=== PATIENT | female | born 1960 | race Caucasian/White ===

== ENCOUNTER 2017-11-06 10:19 | Emergency (ER) | payer SELFPAY ==
[2017-11-06 10:20] VITALS: BP 185/115; PULSE 118; RESP 15; TEMP 36.8; BMI 30.8
--- NOTE | 2017-11-06 10:37 | CT_ITS ---
STUDY: CT ABDOMEN AND PELVIS WITHOUT CONTRAST REASON FOR EXAM: Female, 57 years old. Right flank pain and bladder spasms. Previous endometriosis and fibroid surgery. RADIATION DOSAGE (If Supplied By Facility): CTDIvol = ( 12.65 ) mGy, DLP = ( 682.84 ) mGycm TECHNIQUE: Transaxial images were obtained from the dome of the diaphragm to the symphysis pubis without oral contrast, and without intravenous contrast. Sagittal and coronal images were reconstructed. Individualized dose optimization techniques were used for this CT. COMPARISON: None. FINDINGS: The visualized lung bases are remarkable only for mild multifocal subsegmental atelectasis. The visualized portions of the heart are within normal limits. Normal liver. Normal gallbladder and extrahepatic biliary system. Normal spleen. Normal pancreas. Normal bilateral adrenal glands. There is minimal right hydronephrosis with a right extrarenal pelvis. Normal left kidney. There is a 4.2 mm x 2.5 mm calculi at the right UVJ seen best on current sequence 2, image 160. There is no significant right hydroureter. Normal visualized stomach. Normal small intestine. Normal colon. There is non-visualization of the appendix. Normal abdominal aorta. Normal inferior vena cava. Normal retroperitoneum. Normal urinary bladder. Normal abdominal wall. There is no acute osseous abnormality. There is no suspicious lytic or blastic osseous finding. CT/Abdomen/Pelvis without Cont IMPRESSION: 4.2 mm x 2.5 mm right UVJ calculi that is partially obstructive. No significant right hydroureter. Mild right hydronephrosis and right perinephric stranding. Electronically Signed: Joni Costa MD at 12:39 EDT , Service support ,
[2017-11-06 11:53] LABS: Bacteria 0 SEEN /hpf (None Seen); Mucous, Urine 0 SEEN /hpf (<or=2+); Red Blood Cells-Urine 0 SEEN /hpf (0-5); Squamous Epithelial Cells - UA 0 SEEN /hpf (5-10)
[2017-11-06] MEDS: 0.9% Normal Saline 1,000 ML 1000 ML IV (11:57)
[2017-11-06] MEDS: Ketorolac 30 MG/ML Syringe IV (11:58)
[2017-11-06] MEDS: Ondansetron 4 MG/2 ML Vial IV (11:58)
[2017-11-06 12:03] LABS: Absolute Lymphocyte Count 0.98 X10^3/ul (0.83-4.51); Basophil# 0.04 X10^3/uL; Basophil% 0.5 % (0-1); Eosinophil# 0.04 X10^3/uL; Eosinophils% 0.5 % (0-5); Hemoglobin 14.8 g/dl (12.0-15.0); Lymphocyte # 0.98 X10^3/ul (4.0); Lymphocyte % 12.9 % (19-41); Mean Corp Hgb Conc 34.4 g/gl (32-36); Mean Corpuscular Hgb 31.4 pg (27.0-32.0); Mean Corpuscular Volume 91.3 fL (81-99); Mean Platelet Vol. 9.8 fl (6.2-12.0); Monocyte% 6.6 % (0-10); Neutrophil # 6.03 X10^3/uL (2.7-7.7); Neutrophil % 79.2 % (47-70); Platelet Count 233 K/mm3 (150-450); RBC Distribution Width CV 12.3 % (11.6-14.6); RBC Distribution Width SD 40.4 fl (35.1-43.9); Red Blood Count 4.71 M/mm3 (4.2-5.4); White Blood Count 7.6 K/mm3 (4.4-11.0)
[2017-11-06 12:05] LABS: POSITIVE COUNT NO; POSITIVE DIFFERENTIAL NO; POSITIVE MORPHOLOGY NO
[2017-11-06 12:05] LABS: Color, Urine Yellow (Yellow); Glucose, Dipstick Normal (Normal); Ketone-Dipstick Negative (Negative); Leukocyte Esterase-Dipstick 100 /ul (Negative); Nitrite-Dipstick Negative (Negative); Occult Blood-Urine 50 /ul (Negative); Protein-Dipstick Negative (Negative); Urine Bilirubin Dipstick Negative (Negative); Urine Clarity Clear (Clear); Urine Urobilinogen Normal (Normal)
[2017-11-06 12:13] LABS: White Blood Cells 0-5 SEEN /hpf (0-5)
[2017-11-06 12:18] LABS: Anion Gap 10 (5-15); BUN 15 mg/dL (7-18); BUN/Creat Ratio 15.3 RATIO (10-20); Calcium,Total 9.2 mg/dL (8.5-10.1); Chloride 107 mmol/L (98-107); Creatinine, Serum 0.98 mg/dL (0.55-1.02); EST Glomerular Filtration Rate 63 mL/min (>60); Est Glom Filt Rate - Afr Amer 76 mL/min (>60); Estimated Creatinine Clearance 55.35 ml/min; Glucose 114 mg/dL (74-106); Sodium Level 141 mmol/L (136-145)
--- NOTE | 2017-11-06 12:59 | ED.DCSUM_ITS ---
- ER Visit Summary Date of Service: 11/06/17 Chief Complaint: Abdominal pain History of Present Illness: The patient is a 57 F who presents with abdominal pain. She reports 3-4 similar prior episodes in the past which she attributed to kidney stones but has never actually sought medical evaluation for this and is managed supportively at home. She states about 2 weeks ago she had right flank and back pain with some radiation to the lower abdomen but this improved. It returned this morning and was more severe than any prior episode. She complains of severe suprapubic pain and spasms as well as some mild to moderate right flank and right back pain. She has had some relief with ibuprofen. She reports nausea without vomiting. She states that she has urinary urgency and feels the need to void but is only having a few drops. No fevers. No vomiting. Physical Examination: Afebrile initial heart rate 118 initial blood pressure 185 /115 Patient appears uncomfortable Moist mucous membranes Heart regular rhythm tachycardia Lungs are clear Abdomen soft and nondistended Patient does have some diffuse lower abdominal tenderness No CVA tenderness Test Results: Bladder scan showed 200 cc. CBC BMP unremarkable. Urinalysis shows 100 leukocyte esterase but no pyuria. CT of the flank does show a 4.2 x 2.5 mm right UVJ calculus with mild right hydronephrosis. Emergency Department Course and Treatment: Bladder scan was performed which showed 200 cc. Afterwards the patient was able to void a large amount. She had significant relief of symptoms. Initially she did not want to proceed with further workup. However after discussion did agree to workup. She does not have signs of infection. She was treated here with Toradol and Zofran. She feels much better on reevaluation. She will be discharged with prescriptions for Percocet and Flomax and referred to urology for outpatient follow-up as needed. She understands to return for new or worsening symptoms was instructed on specific signs and symptoms to monitor for. Treatment Plan: [] Disposition: Discharge Impression: Ureterolithiasis This note was generated with [employer] (Droppy) dictation software. It may contain incorrect words, spelling, and punctuation that were not noted in review of the chart prior to signing ED Disposition - Plan for ED Patient: Chief Complaint: Flank Pain Referrals: Morgan Vargas MD [Primary Care Provider] -
--- NOTE | 2017-11-06 13:01 | ED.DEP ---
ED Disposition - Plan for ED Patient: Chief Complaint: Flank Pain Instructions: ED Stone Renal W Colic Prescriptions: Oxycodone HCl/Acetaminophen [Percocet 5/325] 1 tab PO Q6H PRN PRN 3 Days #12 tab PRN Reason: Pain Tamsulosin HCl [Flomax] 0.4 mg PO DAILY 14 Days #14 cap Referrals: Morgan Vargas MD [Primary Care Provider] - Anish Soares MD [STAFF PHYSICIAN] -
[2017-11-06 13:10] VITALS: BP 171/99; PULSE 87; RESP 18; O2SAT 98
== END 2017-11-06 13:18 | disposition home or self-care (01) ==
PROVIDERS: Emergency Provider Emergency Medicine; Family Provider Family Medicine; PCP Family Medicine
DX: N13.2 Hydronephrosis with renal and ureteral calculous obstruction (principal)
CPT/HCPCS: 74176; 80048; 81001; 85025; 96361; 96374; 96375; 99284; J7030; J2405

== ENCOUNTER 2021-08-01 16:47 | Outpatient (CLI) | payer SELFPAY ==
--- NOTE | 2021-08-01 | IMM_PTH ---
PATIENT: BLUE LARA LOC: [facility] U#:[id number] AGE/SX: 60/F ROOM: RE08/01/[address]: Dr. Laura Fay DO : 1960 BED: DIS: 08/01/2021 SPEC #: [id number] RECD: 08/05/21 12:40 STATUS: BYRON REQ #: [id number] KALLI: 08/01/21 00:[address]: Laura Fay DEPT: IMMUNOHISTOCHEMISTRY RECD BY: Beronica Hartman ENTERED: 08/05/21 12:41 SP TYPE: IMMUNO OTHR DR: Dr. Morgan Vargas MD Tissues: Endometrium, NOS Procedures: CA-125 (add) CEA (add) CK20 (add) CK8 (add) P53 (add) Vimentin (add) CK7 (initial) PHYSICIAN & INSTITUTION [place] [id number] SPECIMEN INFORMATION: Tissue Source: Endometrial biopsy Clinical Info: Abnormal uterine bleeding Specimen Number: [id number] CPT code: 97948, 57247 x6 METHODOLOGY: Deparaffinized sections of prefer/formalin-fixed tissue or PAP/DQ stained slides are incubated with monoclonal/polyclonal antibodies/oligonucleotide probes. Localization is made via biotin free immunoperoxidase method. Appropriate controls are performed and reacted as expected. Results on target cell population are indicated in the following table: RESULTS: ANTIBODY / CLONE RESULT CK7 (OV-TL12/30) negative CK8 (13nfvcX13) positive CK20 (KS20.8) positive Vimentin (V9) negative CEA (11-7/TF-3HB-1) positive CA125 (OC125) negative P53 (DO-7) 2%, rare These tests were developed and their performance characteristics determined by [facility]. They may not have been cleared or approved by the U.S. Food and Drug Administration. The FDA has determined that such clearance or approval is not necessary. The above immunohistochemical/dualISH markers are ordered and reviewed by the Pathologist. INTERPRETATION: Endometrial biopsy: Rare atypical intestinal type glandular epithelium present. AM:juliann 08/12/2021 Case has been reviewed in consultation with Dr. Womack who concurs with the above diagnosis. IDC:[id number]
--- NOTE | 2021-08-01 16:00 | EMB_PTH ---
PATIENT: BLUE LARA LOC: [facility] U#:[id number] AGE/SX: 60/F ROOM: RE08/01/[address]: Dr. Laura Fay DO : 1960 BED: DIS: 08/01/2021 SPEC #: [id number] RECD: 08/01/21 16:47 STATUS: BYRON REEsequiel #: [id number] KALLI: 08/01/21 16:[address]: Laura Fay DEPT: SURGICAL PATHOLOGY RECD BY: Melba Herring ENTERED: 08/02/21 11:18 SP TYPE: ENDOM BX/C JOSH DR: Dr. Morgan Vargas MD Tissues: Endometrium, NOS Procedures: Gen Path Consultation (on slides) Surgery Specimen Level IV HEADER OPERATION: Endometrial biopsy PRE-OP DIAGNOSIS: Abnormal uterine bleeding TISSUE SUBMITTED: Endometrial lining MICROSCOPIC DIAGNOSIS Endometrium, biopsy: Atypical intestinal type glandular epithelium present. See comment. AM:juliann 08/05/2021 COMMENT Immunohistochemistry ([id number]) supports the above diagnosis. The specimen primarily consists of clot and blood and contains rare atypical colonic type epithelium, too few to further characterize. A re-biopsy is recommended if clinically indicated. This case was reviewed in consultation with Dr. Raina Hilario of [facility] who concurs with the diagnosis. The complete consultative report is viewable in EMR. Case has been reviewed in consultation with Dr. Womack who concurs with the above diagnosis. ANDREW:CINDY MICROSCOPIC DESCRIPTION Slides are reviewed. GROSS DESCRIPTION Received is one container labeled with the patient's name and not further designated. The specimen consists of a scant amount of soft tissue. The specimen is totally submitted for cell block preparation. / CINDY:juliann 08/02/2021 TC:? CPT: 14232
== END 2021-08-01 23:59 | disposition short-term general hospital (02) ==
LOC: LABSPEC 08-02 07:46
PROVIDERS: PCP Family Medicine; Referring Provider Obstetrics & Gynecology; Visit Provider Obstetrics & Gynecology
DX: N93.9 Abnormal uterine and vaginal bleeding, unspecified (principal)
CPT/HCPCS: 88305; 88325; 88341; 88342

== ENCOUNTER 2021-08-07 10:19 | Outpatient (CLI) | payer SELFPAY ==
--- NOTE | 2021-08-07 10:23 | US_ITS ---
STUDY: ULTRASOUND OF THE FEMALE PELVIS - COMPLETE REASON FOR EXAM: Female, 61 years old. Abnormal uterine bleeding. LMP: The patient is postmenopausal. TECHNIQUE: Transabdominal and Transvaginal TECHNICAL QUALITY: Adequate. COMPARISON: None. FINDINGS: The uterus is anteverted and is in a midline position. The uterus is enlarged and measures 15.7 cm x 10.9 cm x 10.1 cm. Heterogeneous appearance of the cervix with increased vascularity. The endometrium is thickened and measures 9.6 mm in thickness, and is fluid distended. There is a 2.6 cm x 2.2 cm x 2.2 cm echogenic nodular density in the endometrium. Adjacent to this, a similar-appearing 4.4 cm x 3.7 cm x 3.1 cm echogenic structure. This may represent subendometrial fibroid versus possible endometrial polyps. There is a 2.6 cm x 2.1 cm x 2.1 cm fibroid. There is a lucent appearance of the myometrium. I.U.D. - The patient does not have an I.U.D. The right ovary is visualized. The right ovary measures 3.4 cm x 3.4 cm x 3.6 cm. There is no right ovarian cyst or ovarian mass. There is no visualized right adnexal mass or complex lesion. There is normal arterial and normal venous vascularity. The left ovary is visualized. The left ovary measures 3.4 cm x 2.3 cm x 3.1 cm. There is no left ovarian cyst or ovarian mass. There is no visualized left adnexal mass or complex lesion. There is normal arterial and normal venous vascularity. There is no fluid in the cul-de-sac. The pre void volume of the bladder was 379 ml. US/Pelvic (Non ) IMPRESSION: Enlargement of the uterus. Endometrial thickening with possible subendometrial fibroids versus polyps. Fibroid uterus. Electronically Signed: Robin Warner MD at 13:35 EST ,
--- NOTE | 2021-08-07 10:23 | US_ITS ---
STUDY: ULTRASOUND OF THE FEMALE PELVIS - COMPLETE REASON FOR EXAM: Female, 61 years old. Abnormal uterine bleeding. LMP: The patient is postmenopausal. TECHNIQUE: Transabdominal and Transvaginal TECHNICAL QUALITY: Adequate. COMPARISON: None. FINDINGS: The uterus is anteverted and is in a midline position. The uterus is enlarged and measures 15.7 cm x 10.9 cm x 10.1 cm. Heterogeneous appearance of the cervix with increased vascularity. The endometrium is thickened and measures 9.6 mm in thickness, and is fluid distended. There is a 2.6 cm x 2.2 cm x 2.2 cm echogenic nodular density in the endometrium. Adjacent to this, a similar-appearing 4.4 cm x 3.7 cm x 3.1 cm echogenic structure. This may represent subendometrial fibroid versus possible endometrial polyps. There is a 2.6 cm x 2.1 cm x 2.1 cm fibroid. There is a lucent appearance of the myometrium. I.U.D. - The patient does not have an I.U.D. The right ovary is visualized. The right ovary measures 3.4 cm x 3.4 cm x 3.6 cm. There is no right ovarian cyst or ovarian mass. There is no visualized right adnexal mass or complex lesion. There is normal arterial and normal venous vascularity. The left ovary is visualized. The left ovary measures 3.4 cm x 2.3 cm x 3.1 cm. There is no left ovarian cyst or ovarian mass. There is no visualized left adnexal mass or complex lesion. There is normal arterial and normal venous vascularity. There is no fluid in the cul-de-sac. The pre void volume of the bladder was 379 ml. US/Transvaginal Non- IMPRESSION: Enlargement of the uterus. Endometrial thickening with possible subendometrial fibroids versus polyps. Fibroid uterus. Electronically Signed: Robin Warner MD at 13:35 EST ,
== END 2021-08-07 23:59 | disposition short-term general hospital (02) ==
PROVIDERS: PCP Family Medicine; Referring Provider Obstetrics & Gynecology; Visit Provider Obstetrics & Gynecology
DX: N93.9 Abnormal uterine and vaginal bleeding, unspecified (principal); N85.2 Hypertrophy of uterus; D25.9 Leiomyoma of uterus, unspecified; R93.89 Abnormal findings on diagnostic imaging of other specified body structures
CPT/HCPCS: 76830; 76856

== ENCOUNTER 2021-08-20 07:55 | Day surgery (SDC) | payer SELFPAY ==
[2021-08-19 09:14] LABS: Hematocrit 42.2 % (37-47); Hemoglobin 14.3 g/dL (12.0-15.0); Mean Corp Hgb Conc 33.9 g/dL (32-36); Mean Corpuscular Hgb 31.2 pg (27.0-32.0); Mean Corpuscular Volume 92.1 fL (81-99); Platelet Count 395 K/mm3 (150-450); RBC Distribution Width CV 12.1 % (11.6-14.6); RBC Distribution Width SD 40.7 fl (35.1-43.9); Red Blood Count 4.58 M/mm3 (4.2-5.4); White Blood Count 7.3 K/mm3 (4.4-11.0)
[2021-08-19 09:47] LABS: ALB/GLOB Ratio 0.8 RATIO (0.9-2.4); AST(SGOT) 70 U/L (15-37); Alanine Aminotransfer ALT/SGPT 80 U/L (13-56); Albumin, Serum 3.6 g/dL (3.2-5.0); Alkaline Phosphatase 60 U/L (45-117); Anion Gap 10 (5-15); BUN 10 mg/dL (7-18); BUN/Creat Ratio 11.9 RATIO (10-20); Chloride 103 mmol/L (98-107); Creatinine, Serum 0.84 mg/dL (0.55-1.02); EST Glomerular Filtration Rate 74 mL/min (>60); Est Glom Filt Rate - Afr Amer 89 mL/min (>60); Globulin 4.7 g/dL (2.2-4.2); Glucose 98 mg/dL (74-106); Protein, Total 8.3 g/dL (6.4-8.2); Sodium Level 137 mmol/L (136-145)
[2021-08-20] VITALS (7 sets, daily range): BP systolic 106–162; BP diastolic 77–94; PULSE 113–130; RESP 16; TEMP 37.3–38.1; O2SAT 93–98; BMI 29.8
--- NOTE | 2021-08-20 | IMM_PTH ---
PATIENT: BLUE LARA LOC: [facility] U#:[id number] AGE/SX: 61/F ROOM: RE08/20/[address]: Dr. Laura Fay DO : 1960 BED: DIS: 08/20/2021 SPEC #: [id number] RECD: 08/21/21 13:08 STATUS: BYRON REQ #: [id number] KALLI: 08/20/21 00:[address]: Laura Fay DEPT: IMMUNOHISTOCHEMISTRY RECD BY: Beronica Hartman ENTERED: 08/21/21 13:09 SP TYPE: IMMUNO OTHR DR: Dr. Morgan Vargas MD Tissues: Endometrium, NOS Procedures: SMA (add) MSH2 (add) MLH-1 (add) MSH6 (add) Anti-PMS2 (add) CA-125 (add) CK20 (add) CK5-6 (add) CK7 (add) CK8 (add) DESMIN (add) HER2 HOSSEIN (add) KI-67 (add) P53 (add) MI (add) Vimentin (add) Pankeratin (add) MELAN-A (add) P40 (add) ER (initial) S-100 (add) PHYSICIAN & [place] [id number] SPECIMEN INFORMATION: Tissue Source: Endometrial curettings Clinical Info: Postmenopausal bleeding, enlarged uterus Specimen Number: [id number] #3 CPT code: 65590, 32610 x20 METHODOLOGY: Deparaffinized sections of prefer/formalin-fixed tissue or PAP/DQ stained slides are incubated with monoclonal/polyclonal antibodies/oligonucleotide probes. Localization is made via biotin free immunoperoxidase method. Appropriate controls are performed and reacted as expected. Results on target cell population are indicated in the following table: RESULTS: ANTIBODY / CLONE RESULT Block 3 ER (6F11) positive, focal MI (1E2) positive, focal AE1-3 (AE1/AE3/PCK26) positive, focal CK7 (OV-TL12/30) negative CK8 (91elerY35) positive, rare cells CK20 (KS20.8) negative Vimentin (V9) positive Actin (1A4) positive, spindle cells Desmin (CE-R-11) positive, focal Melan A (A103) negative S-100 (4C4.9) negative CK5-6 (D5 & 1684) negative P40 (BC28) negative P53 (DO-7) negative (wild type) Ki-67 (30-9) positive, ~90% These tests were developed and their performance characteristics determined by [facility]. They may not have been cleared or approved by the U.S. Food and Drug Administration. The FDA has determined that such clearance or approval is not necessary. The above immunohistochemical/dualISH markers are ordered and reviewed by the Pathologist. 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 SJ:rg 08/28/2021 The specimen is sent to [facility] for expert opinion, reviewed by Dr. Clementine Lawrence and the above diagnosis is rendered. Additional immunohistochemical stains performed there and IHC performed here support the above diagnosis. The complete report is viewable in the patient's EMR. ADDENDUM ADDENDUM ADDENDUM ADDENDUM ADDENDUM ADDENDUM ADDENDUM ADDENDUM ADDENDUM ADDENDUM ADDENDUM ADDENDUM ADDENDUM ADDENDUM ADDENDUM ADDENDUM ADDENDUM ADDENDUM ADDENDUM 09/16/2021 09:35 ADDENDUM 09/16/2021 09:35 ADDENDUM 09/16/2021 09:35 ADDENDUM 09/16/2021 09:35 ADDENDUM 09/16/2021 09:35 ANTIBODY / CLONE RESULT Block 3 Ki-67 (30-9) positive, high P53 (DO-7) positive, ~50%, weak MLH-1 (M1) positive MSH2 (25D12) positive MSH6 (44) positive PMS2 (KKD0553) positive Her-2neu (CB11) negative (0) CA125 (OC125) negative The above immunohistochemical/dualISH markers are ordered by Dr. Mindy Cali and reviewed by the pathologist. Result of Microsatellite Instability Study: Negative (no loss of mismatch protein; no microsatellite instability detected). SJ:juliann 09/16/2021
--- NOTE | 2021-08-20 08:08 | PCM.HP.BLA ---
History and Physical Date of Admission: 08/20/21 [facility] [id number] [place] [address] [phone] OFFICE VISITDate of Service: 08/01/21 MR#:[id number]:[id number]: BLUE LARA [facility] #:[id number]:1960 Provider:Dr. 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 Laura Fay DO) Bladder prolapse Endometriosis Uterine fibroid Surgical History (Updated 08/01/21 @ 15:47 by Lea Toth) History of laparoscopy Uterine fibroid Family History (Updated 08/01/21 @ 15:48 by Lea Toth) Father Prostate cancer Diabetes Myocardial infarction Mother Myocardial infarction Social History (Updated 08/01/21 @ 15:49 by Lea Toth) Smoking Status: Never smoker alcohol intake: never substance use type: does not use caffeine: Yes seatbelt use: always do you feel safe at home: Yes additional social history: [facility] Patient does not work HPI Tiffany MARTINO referral Details: BLUE LARA is a 60 year old who presents for consultation per for postmenopausal bleeding and enlarged uterus. She states that her menses stopped in her 40's and the persistent bleeding started when her prolapse started about 5 years ago. She never had childred (2 adopted) due to large fibroid uterus history. She has a h/o 2 laparotomy procedures to remove the fibroids. She denies having other medical problems or family history of female cancers. Female Reproductive History Questions: metorrhagia: No, sexually active: Yes, dyspareunia: No and PCB: No Menopausal Symptoms: No hot flashes, No night sweats, No weight change, No mood changes, No difficulty concentrating, No sleep problems and No change in libido Pregancy History 0 Elective abortions Hx Para Spontaneous abortions Hx # Term Pregnancies Ectopic pregnancies Hx # Pregnancies Multiple births # of living children ROS Const Constitutional: Reports as per HPI; Denies fatigue, increased appetite, poor appetite, night sweats, weight gain or weight loss GI GI: Reports as per HPI; Denies abdominal pain, bloating, constipation, nausea or vomiting : Reports as per HPI and other; Denies difficulty voiding, dysuria, hematuria, hot flashes, nipple discharge, pelvic pain, prolapse symptoms, urinary frequency, urinary incontinence, urinary urgency, vaginal discharge, vaginal dryness, vaginal odor or vaginal pruritus Skin Skin/Breast: Denies nipple discharge Psych Psych: Denies anxiety, change in libido, depression or difficulty concentrating Exam Const General: cooperative, healthy appearing, comfortable, no acute distress, well developed and well groomed Resp Effort & Inspection: normal respiratory effort GI Inspection: normal to inspection and non-distended Palpation: soft, no hepatosplenomegaly and no guarding General: bladder normal to palpation External Female Exam: normal external appearance, normal appearance of the urethra and no lesions Urethra: normal appearance of the urethra and normal palpation Speculum Exam - Vagina: normal appearance of the vagina and normal vaginal discharge Speculum Exam - Cervix: normal appearance of the cervix, no lesions and nontender Bimanual Exam- Vagina & Uterus: abnormal uterine size (uterus is enlarged and firm, possibly consistent with uterine fibroid. ), bladder normal to palpation, uterine shape normal, No tender, No normal palpation (irregularly shaped ), non-tender, no cervical motion tenderness and enlarged Bimanual Exam- Adnexa, other: non-tender Skin General: no rashes or lesions noted Psych Appearance: grossly normal Mental Status: mental status grossly normal Affect: normal affect Speech and Movement: speech and movement normal Attitude: cooperative Office Procedures Endometrial Biopsy Endometrial Biopsy Test: Yes Not Applicable Consent Signed: Yes Time out checklist: patient, procedure, positioning of patient and allergies confirmed tenaculum used: Yes dilator used: No Details: Cervix prepped with betadine and pipelle inserted into uterus without complication. Specimen obtained and sent to lab for analysis. All instruments removed from vagina without complications. Excellent hemostasis noted. Coding Level of Care Code Off vis,new,level 4 Diagnoses Postmenopausal bleeding N95.0 Enlarged uterus N85.2 CPT Codes Endometrial Biopsy (09798) Assessment and Plan Assessment and Plan (1) Postmenopausal bleeding: Status: Acute Plan - Dr. Laura Fay, DO: emb performed today will call with results (2) Enlarged uterus: Status: Acute Plan - Dr. Laura Fay DO: pelvic ultrasound ordered will call with results. Plan Details Other Orders: Orders: Endometrial Biopsy Today N93.9 Pelvic (Non ) Today N93.9 Transvaginal Non- Today N93.9 UPDATE- I have seen the patient and performed any clinically relevant updates to the history and physical exam. Laura Fay DO pathology showed abnormal uterine cells that are intestinal type. After discussing with MEDIA ASSOCIATE oncologist Dr. Kyle in [place], These cells could represent malignancy that is metastatic from another location. The next best plan of action is a full D&C with hysteroscopy to better examine the uterine tissue. When pathology from this procedure is back, she will likely be formally referred to Dr. Little's for further evaluation Plan to day is for Hysteroscopy D&C Plan for DC to home after surgery today.
--- NOTE | 2021-08-20 08:10 | PCM.DC ---
Discharge Instructions Diet Discharge Diet: No restrictions Activity Discharge Activity: Return to Normal Activity, May Shower and May Take a Tub Bath (after 1 week) May resume sexual activity in: 1-2 weeks Weight Bearing Status: Weight bearing as tolerated Lifting Restrictions: none Dressing / Incision Call your doctor if you observe: Fever of 101 or Higher, Using more than 1 pad per hour, Shortness of breath and Uncontrolled pain Follow Up Care Please Follow Up With: Laura Fay DO When: Call [phone] to schedule appointment. Test Results: Test results from this visit will be discussed in further detail at your follow-up appointment, if applicable. Discharge Plan Admission Primary Reason for Your Visit: hysteroscopy Dilation and curettage Attending Provider: Laura Fay Primary Care Provider: Morgan Vargas Discharge Orders/Prescriptions Prescriptions: New ibuprofen 800 mg tablet 800 mg PO Q8H PRN (Reason: pain) 7 Days Qty: 30 RF: 0 Continued vitamin E (dl, acetate) 45 mg (100 unit) capsule 45 mg PO DAILY RF: 0 omega 2-hna-kal-fish oil [Fish Oil] 60-90-500 mg capsule 1 cap PO DAILY RF: 0 multivitamin Tablet 1 tab PO DAILY RF: 0 zinc 50 mg Tablet 50 mg PO DAILY RF: 0 ascorbic acid (vitamin C) 1,000 mg Capsule, Extended Release 2 cap PO DAILY RF: 0 cholecalciferol (vitamin D3) [Vitamin D3] 125 mcg (5,000 unit) Tablet 125 mcg PO DAILY RF: 0 oxycodone-acetaminophen [Percocet] 5-325 mg tablet 1 tab PO Q6H 7 Days Qty: 14 RF: 0 Referrals / Follow Up: Morgan Vargas MD [Primary Care Provider] - Disposition Disposition (needs filled in before D/C Order can be placed): Home, Self Care
[2021-08-20] MEDS: Lactated Ringers 1,000 ML 15 ML IV (08:25)
--- NOTE | 2021-08-20 08:36 | EKG12_ITS ---
Test Reason : TACHY Blood Pressure : / mmHG Vent. Rate : 127 BPM Atrial Rate : 127 BPM P-R Int : 136 ms QRS Dur : 078 ms QT Int : 314 ms P-R-T Axes : 057 037 015 degrees QTc Int : 456 ms Sinus tachycardia Otherwise normal ECG Confirmed by NELY BRO, DORIS ([id number]), editor index JONO HUNTER ([id number]) on 08/26/2021 9:41:16 AM Referred By: Laura Fay Confirmed By:DORIS MCKAY MD
--- NOTE | 2021-08-20 09:30 | EMB_PTH ---
PATIENT: BLUE LARA LOC: [facility] U#:[id number] AGE/SX: 61/F ROOM: RE08/20/[address]: Dr. Laura Fay DO : 1960 BED: DIS: 08/20/2021 SPEC #: [id number] RECD: 08/20/21 11:13 STATUS: BYRON ALY #: [id number] KALLI: 08/20/21 09:[address]: Laura Fay DEPT: SURGICAL PATHOLOGY RECD BY: Melba Herring ENTERED: 08/20/21 12:01 SP TYPE: ENDOM BX/C JOSH DR: Dr. Morgan Vargas MD Tissues: Endometrium, NOS Procedures: Gen Path Consultation (on slides) Surgery Specimen Level IV HEADER OPERATION: Hysteroscopy, dilation and curettage PRE-OP DIAGNOSIS: Postmenopausal bleeding, enlarged uterus TISSUE SUBMITTED: Endometrial curettings MICROSCOPIC DIAGNOSIS Endometrial curettings: Preliminary diagnosis (pending [facility] consult) Poorly differentiated malignancy. CINDY:juliann 08/22/2021 COMMENT This case was discussed with Dr. Fay on 08/22/2021. MICROSCOPIC DESCRIPTION Slides are reviewed. GROSS DESCRIPTION Received in fixative is one container labeled with the patient's name and designated endometrial curettings. The specimen consists of three variable sized polypoid fragments of adamson-pink soft tissue measuring in aggregate 5.5 x 3 x 0.5 cm. The larger pieces are serially sectioned. The entire specimen is submitted in four cassettes. 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 SJ:juliann 08/28/2021 The specimen is sent to [facility] for expert opinion, reviewed by Dr. Clementine Lawrence and the above diagnosis is rendered. The complete report is viewable in the patient's EMR. Immunohistochemistry ([id number]) supports the above diagnosis. Case has been reviewed in consultation with Dr. Kern who concurs with the above diagnosis. IDC:[email or web address]
--- NOTE | 2021-08-20 10:08 | PCM.OP.BLANK ---
Operative Report Date of Procedure: 08/20/21 Pre-operative diagnosis: abnormal endometrial biopsy and enlarged uterus, postmenopausal bleeding, pelvic pain Post-operative diagnosis: abnormal endometrial biopsy and enlarged uterus, postmenopausal bleeding, pelvic pain Surgeon: Dr. Laura Fay, DO Urine output:0 Estimated blood loss: 200cc Procedure: Hysteroscopy Dilation and curettage complications: none Patient was prepped and draped in a normal sterile fashion under MAC anesthesia. A weighted speculum was placed in the vagina and the anterior lip of the cervix was grasped with a single-tooth tenaculum. A paracervical block was placed with 1% lidocaine. Cervix was progressively dilated to allow passage of a 5 mm hysteroscope. The lining was fully visualized and noted to have an irregular appearance with blood and tissue. The uterus initially sounded to 12 cm. Curettage was performed and a moderate amount of firm tissue was removed in strips and sent to pathology. There was a moment of heavy flowing bleeding in the amount of 200 cc. Further curettage was performed until the bleeding stopped. The patient is being administered TXA to prevent further bleeding. All instruments were removed from the vagina and excellent hemostasis was noted. Patient was awoken and taken to recovery in stable condition. Multi Select Codes Urinary/Genital Urinary/Genital CPT Codes: 16387 Hysteroscopy,EMC, Polypectomy
[2021-08-20 10:12] LABS: Bacteria 0 SEEN /hpf (None Seen); Mucous, Urine 0 SEEN /hpf (<or=2+); Squamous Epithelial Cells - UA 0 SEEN /hpf (5-10); White Blood Cells 0 SEEN /hpf (0-5)
[2021-08-20] MEDS: Lubricating Jelly 60 GM Tube 30 GM (10:20)
[2021-08-20] MEDS: Lidocaine 1% (20 ml mdv) 20 ML Vial (10:20)
[2021-08-20 10:59] LABS: Color, Urine Yellow (Yellow); Glucose, Dipstick Normal (Normal); Ketone-Dipstick 50 mg/dl (Negative); Leukocyte Esterase-Dipstick Negative /ul (Negative); Nitrite-Dipstick Negative (Negative); Occult Blood-Urine 150 /ul (Negative); Protein-Dipstick 15 mg/dl (Negative); Specific Gravity, Urine 1.015 (1.002-1.030); Urine Bilirubin Dipstick Negative (Negative); Urine Clarity Clear (Clear); Urine Urobilinogen Normal (Normal)
[2021-08-20 11:20] LABS: Amorphous Sediment 3+; Red Blood Cells-Urine 5-10 SEEN /hpf (0-5)
== END 2021-08-20 23:59 | disposition home or self-care (01) ==
LOC: SDC 07:56 → AC 07:56
PROVIDERS: PCP Family Medicine; Referring Provider Obstetrics & Gynecology; Visit Provider Obstetrics & Gynecology
PROC: 0UDB8ZZ Extraction of Endometrium, Via Natural or Artificial Opening Endoscopic (ICD-10-PCS; CPT 58558; principal; 2021-08-20 09:20)
DX: C54.1 Malignant neoplasm of endometrium (principal); N95.0 Postmenopausal bleeding; N85.2 Hypertrophy of uterus
CPT/HCPCS: 58558; 00952; 36415; 80053; 81001; 85027; 86850; 86900; 86901; 87086; 87088; 87426; 88305; 88325; 88341; 88342; 93005; C9803; J7120; J2405

== ENCOUNTER 2022-01-14 20:57 | Inpatient (IN) | payer SELFPAY ==
[2022-01-14 21:01] VITALS: BP 132/88; PULSE 125; RESP 18; TEMP 36.8; O2SAT 95; BMI 20.9
--- NOTE | 2022-01-14 21:05 | EKG12_ITS ---
Test Reason : CP ADMIT Blood Pressure : / mmHG Vent. Rate : 104 BPM Atrial Rate : 104 BPM P-R Int : 148 ms QRS Dur : 092 ms QT Int : 314 ms P-R-T Axes : 058 045 026 degrees QTc Int : 412 ms Sinus tachycardia with Premature atrial complexes Otherwise normal ECG Confirmed by NELY BRO, DORIS ([id number]), order editor JONO HUNTER ([id number]) on 01/16/2022 9:14:21 AM Referred By: Confirmed By:DORIS MCKAY MD
--- NOTE | 2022-01-14 21:16 | EKG12_ITS ---
Test Reason : CP Blood Pressure : / mmHG Vent. Rate : 120 BPM Atrial Rate : 120 BPM P-R Int : 144 ms QRS Dur : 090 ms QT Int : 298 ms P-R-T Axes : 046 016 031 degrees QTc Int : 421 ms Sinus tachycardia Otherwise normal ECG Confirmed by NELY BRO, DORIS ([id number]), fan mail editor JONO HUNTER ([id number]) on 01/18/2022 9:46:49 AM Referred By: DELANO Confirmed By:DORIS MCKAY MD
[2022-01-14 21:41] LABS: Absolute Lymphocyte Count 0.64 X10^3/uL (0.83-4.51); Absolute Neutrophil Count 8.8 X10^3/uL (2.0-7.7); Basophil# 0.04 X10^3/uL; Basophil% 0.4 % (0-1); Eosinophil# 0.03 X10^3/uL; Eosinophils% 0.3 % (0-5); Hematocrit 30.1 % (37-47); Hemoglobin 9.9 g/dL (12.0-15.0); Lymphocyte # 0.64 X10^3/ul (0.83-4.51); Lymphocyte % 5.9 % (19-41); Mean Corp Hgb Conc 32.9 g/dL (32-36); Mean Corpuscular Hgb 34.3 pg (27.0-32.0); Mean Corpuscular Volume 104.2 fL (81-99); Mean Platelet Vol. 8.6 fl (6.2-12.0); Monocyte% 11.2 % (0-10); NRBC Flagged by Analyzer 0 % (0-5); Neutrophil % 81.7 % (47-70); Platelet Count 281 K/mm3 (150-450); RBC Distribution Width CV 13.3 % (11.6-14.6); RBC Distribution Width SD 51.5 fl (35.1-43.9); Red Blood Count 2.89 M/mm3 (4.2-5.4); White Blood Count 10.8 K/mm3 (4.4-11.0)
[2022-01-14 22:09] LABS: Anion Gap 12 (5-15); BUN 17 mg/dL (7-18); BUN/Creat Ratio 27.6 RATIO (10-20); Chloride 94 mmol/L (98-107); Creatinine, Serum 0.62 mg/dL (0.55-1.02); EST Glomerular Filtration Rate 105 mL/min (>60); Est Glom Filt Rate - Afr Amer 127 mL/min (>60); Estimated Creatinine Clearance 83.32 ml/min; Glucose 103 mg/dL (74-106); Potassium 4.3 mmol/L (3.5-5.1); Sodium Level 132 mmol/L (136-145); Troponin-I HS < 3 pg/mL (3.0-54.0)
[2022-01-14 22:38] VITALS: BP 136/83; PULSE 106; RESP 22; O2SAT 98
--- NOTE | 2022-01-14 22:43 | CT_ITS ---
We are attempting to reach an attending provider to discuss findings. An addendum with communication details will be sent when the communication is complete. EXAM: CT ANGIOGRAPHY CHEST WITHOUT AND WITH INTRAVENOUS CONTRAST CLINICAL INDICATION: High pretest probability pulmonary embolus TECHNIQUE: Helically acquired angiography images were obtained of the chest without and with intravenous contrast. This CT exam was performed using one or more of the following dose reduction techniques: automated exposure control, adjustment of the mA and/or kV according to patient size, and/or use of iterative reconstruction technique. This report was created using [employer] report generation technology. MIP reconstructed images were created and reviewed. CONTRAST: 75 cc of Isovue-370 IV. RADIATION DOSE: CTDIvol = 7.64 mGy, DLP = 140.77 mGy-cm. COMPARISON: None. FINDINGS: PULMONARY ARTERIES: Pulmonary emboli involving proximal right middle and lower lobe pulmonary arteries. Normal in caliber. AORTA: Unremarkable. Normal in caliber. No evidence of dissection. GREAT VESSELS OF AORTIC ARCH: Unremarkable. Normal in caliber. No evidence of dissection. LUNGS AND PLEURAL SPACES: Subsegmental atelectasis in the lung bases left greater than right. No mass. No pleural effusion or thickening. No pneumothorax. HEART: Unremarkable. Heart size is normal. No pericardial effusion. No signs of right heart strain, ratio of right ventricle to left ventricle measures less than 1. MEDIASTINUM: Borderline size mediastinal lymph nodes. Esophagus is unremarkable. No hiatal hernia. THYROID: Unremarkable. No thyroid lesions. BONES/JOINTS: Unremarkable. No suspicious lytic or blastic abnormality. CT/CTA Chest W/WO Contrast IMPRESSION: 1. Pulmonary emboli involving proximal right middle and lower lobe pulmonary arteries. No signs of right ventricular strain. 2. Subsegmental atelectasis in the lung bases left greater than right. 3. Borderline size mediastinal lymph nodes. Electronically Signed: Maninder Pardo MD at 23:41 EDT ,
--- NOTE | 2022-01-14 22:48 | US_ITS ---
ACR Level 3 findings have been noted. An addendum which confirms receipt of the report will follow. EXAM: US DUPLEX LEFT LOWER EXTREMITY VEINS CLINICAL INDICATION: LT LEG SWELLING/ PAIN TECHNIQUE: Real-time duplex ultrasound scan of the left lower extremity veins integrating B-mode two-dimensional vascular structure, Doppler spectral analysis, color flow Doppler imaging and compression. This report was created using [employer] report generation technology. COMPARISON: None. FINDINGS: DEEP VEINS: Positive for DVT from the common femoral vein to the peroneal vein/posterior tibial vein at the level of the calf. SUPERFICIAL VEINS: Unremarkable. No thrombus in the visualized great saphenous vein. SOFT TISSUES: No acute findings. No popliteal cyst. US/Venous Duplex Imag/Limited/Uni IMPRESSION: Extensive DVT. Electronically Signed: Miguel Del Toro MD at 23:28 EDT ,
--- NOTE | 2022-01-14 22:59 | EX.ED.DYSGE1 ---
HPI History of Present Illness Chief Complaint: Chest Pain Detail of Chief Complaint: Pleuritic left-sided chest pain, left lower extremity pain and swelling Informant: patient and spouse/S.O. Onset/Context/Timing Onset: Days Context: Sudden Onset Timing: Continuous Quality: Pleuritic chest pain and left lower extremity pain Location: Left side Current Severity: Mild Maximum Severity: Moderate Worsened by: Chest pain is worse with breathing Relieved by: Nothing Associated Symptoms Associated Symptoms: Dyspnea on exertion Narrative Narrative: Patient is a 61-year-old woman with stage IV uterine cancer who presents with left-sided pleuritic chest pain with shortness of breath dyspnea on exertion. She also has a swollen left lower extremity that is painful. She denies fever, chills night sweats. She denies headache, visual, ocular auditory symptoms. She denies history of cardiac disease. She denies epistaxis, bleeding of her gums, hemoptysis. She denies hematuria. She denies black or maroon-colored stool. She has no contraindication to anticoagulation. Prior similar symptoms: No Recent Illness/Hospitalization: Yes [facility] Medical History Anxiety Back pain Bladder prolapse Endometriosis History of echocardiogram History of irregular heartbeat History of ulceration Migraine headache Non-smoker Uterine cancer Uterine fibroid Wears glasses White coat syndrome with high blood pressure but without hypertension Home Medications multivitamin 1 tab PO DAILY 08/01/21 [History Last Taken Unknown] omega 8-iyn-kze-fish oil 60 mg-90 mg-500 mg capsule (Fish Oil) 1 cap PO DAILY 08/01/21 [History Last Taken Unknown] vitamin E (dl, acetate) 45 mg (100 unit) capsule 45 mg PO DAILY 08/01/21 [History Last Taken Unknown] ascorbic acid (vitamin C) 1,000 mg capsule,extended release 2 cap PO DAILY 08/16/21 [History Last Taken Unknown] cholecalciferol (vitamin D3) 125 mcg (5,000 unit) tablet (Vitamin D3) 250 mcg PO DAILY 08/16/21 [History Last Taken Unknown] zinc 50 mg tablet 100 mg PO DAILY 08/16/21 [History Last Taken Unknown] diltiazem HCl 180 mg capsule,extended release 24 hr 180 cap PO BID 01/14/22 [History Last Taken Unknown] melatonin 3 mg tablet 3 mg PO DAILY 01/14/22 [History Last Taken Unknown] morphine 10 mg/5 mL oral solution 7.5 ml PO Q4H PRN PRN Pain 01/14/22 [History Last Taken Unknown] Allergy/AdvReac Type Severity Reaction Status Date / Time aspirin Allergy Other Verified 01/14/22 20:59 Family History Father Prostate cancer Diabetes Myocardial infarction Mother Myocardial infarction Surgical History History of laparoscopy Hx of laparoscopy Uterine fibroid Social History Smoking Status: Never smoker alcohol intake: never substance use type: does not use caffeine: Yes seatbelt use: always do you feel safe at home: Yes additional social history: [employer] Patient does not work ROS ROS ED Constitutional Constitutional ED: Reports sweats and weight loss; Denies chills, fever(s) or subjective Eyes Eyes: Denies blurry vision, change in vision or diplopia ENT ENT ED: Denies ear pain, rhinorrhea or sore throat Cardiovascular Cardiovascular: Reports palpitations; Denies chest pain, orthopnea or paroxysmal nocturnal dyspnea Respiratory/Chest Respiratory/Chest: Reports dyspnea and dyspnea on exertion; Denies cough, orthopnea or paroxysmal nocturnal dyspnea Gastrointestinal Gastrointestinal: Denies abdominal pain, constipation, diarrhea, melena, nausea or vomiting Genitourinary Genitourinary ED: Denies dysuria, hematuria or other Musculoskeletal Musculoskeletal: Denies arthralgias, back pain, myalgias or neck pain Integumentary Denies abscess, Abrasions or rash Neurologic Neurologic: Denies headache(s), paresthesias or weakness Psychiatric Psychiatric: Reports anxiety; Denies depression Endocrine Endocrinology: Denies cold intolerance or heat intolerance Hematologic/Lymphatic Hematologic/Lymphatic: Reports anemia; Denies easy bleeding or easy bruising EXAM Physical Exam Const Vital Signs: 01/14/22 21:01 01/14/22 22:30 01/14/22 22:30 Temperature 98.2 F Temperature Source Temporal Pulse Rate 125 H Respiratory Rate 18 Respiratory Effort Normal Non-Labored Respiratory Pattern Normal Blood Pressure 132/88 H Blood Pressure Mean 102 Pulse Ox 95 Oxygen Delivery Method Room Air Room Air 01/14/22 22:38 01/14/22 23:00 01/14/22 23:46 Temperature Temperature Source Pulse Rate 106 H 113 H Respiratory Rate 22 H 15 18 Respiratory Effort Respiratory Pattern Blood Pressure 136/83 H 128/83 H Blood Pressure Mean 100 98 Pulse Ox 98 95 Oxygen Delivery Method Room Air Room Air Room Air 01/14/22 23:48 Temperature Temperature Source Pulse Rate Respiratory Rate 17 Respiratory Effort Respiratory Pattern Blood Pressure Blood Pressure Mean Pulse Ox Oxygen Delivery Method Room Air Positive well nourished and well developed General Appearance ED: well developed; Negative for cyanotic, diaphoretic, NAD or pallor HEENT Reports dry mucous membranes HEENT Narrative: Uvula midline. There is no erythema or exudate of the posterior pharynx. Head is normocephalic atraumatic. She does have alopecia. Mouth ED: Yes dry mucous membranes Mouth: dry mucous membranes Eyes PERRL and EOMs intact bilaterally General Eye ED: Yes pale conjunctiva; Negative for scleral icterus Neck no lymphadenopathy, supple and no JVD Chest Wall inspection of chest normal and palpation of chest normal Resp normal respiratory effort and clear to auscultation bilaterally Cardio regular rhythm, S1 normal heart sound, S2 normal heart sound and no murmurs Rate: tachycardic GI normal to inspection, nondistended, normoactive bowel sounds, non-tender and non-distended; Negative for hepatosplenomegaly Back/Spine no CVA tenderness Cervical Spine: Negative for cervical spine tenderness Thoracic Spine / Upper Back: Negative for thoracic spinal tenderness Lumbar Spine / Lower Back: Negative for lumbar spinal tenderness Extremity Negative for normal to inspection Extremity Narrative: The left lower extremity is swollen, discolored, there is leg vein distention and tenderness on the distribution deep venous system. There is no palpable cords. Neuro oriented x3, CN's II-XII intact bilaterally and no sensory deficits noted Sensorium / Orientation: alert Motor Exam: strength 5/5 throughout Psych mental status grossly normal Skin no rashes or lesions noted, no wounds and skin turgor normal General Skin Exam: Negative for jaundice or pallor MDM MDM MDM Narrative Medical decision making narrative: Concern patient has DVT and PE. Nurses entered protocol orders. Patient is anemic with a hemoglobin 9.9 and hematocrit of 30.1. Platelet count is normal. White count differential normal. Liver functions normal. Troponin is less than 3. Calcium is elevated and may represent bone metastasis. Did discuss CODE STATUS. Patient is full code. She has an appointment to be seen by specialist who have managed stage IV cancer in [place]. She does not have an appointment to the end of the month. Therefore, will contact hospitalist for admission Lab Data Attestation: I reviewed the patient's lab results. Lab results narrative: Coags were ordered. Patient was started on heparin with bolus. I was informed by the information technology security manager that the venous duplex study of the left leg reveals clot the entire left lower extremity involving the common femoral vein to the ankle. Labs: Laboratory Results - last 24 hr 01/14/22 01/14/22 21:30 21:30 WBC 10.8 RBC 2.89 L Hgb 9.9 L Hct 30.1 L MCV 104.2 H MCH 34.3 H MCHC 32.9 RDW Std Deviation 51.5 H RDW Coeff of Subha 13.3 Plt Count 281 MPV 8.6 Immature Gran % (Auto) 0.500 Neut % (Auto) 81.7 H Lymph % (Auto) 5.9 L [place] % (Auto) 11.2 H Eos % (Auto) 0.3 Baso % (Auto) 0.4 Absolute Neuts (auto) 8.8 H Absolute Lymphs (auto) 0.64 L Nucleated RBC % 0 Sodium 132 L Potassium 4.3 Chloride 94 L Carbon Dioxide 26.0 Anion Gap 12 BUN 17 Creatinine 0.62 Estim Creat Clear Calc 83.32 Est GFR (MDRD) Af Amer 127 Est GFR (MDRD) Non-Af 105 BUN/Creatinine Ratio 27.6 H Glucose 103 Calcium 13.0 H* Troponin I High Sens < 3 L Radiography Diagnostic Testing: Clinical Impression(s) from Imaging Studies Chest CTA 01/14/22 22:43 IMPRESSION: 1. Pulmonary emboli involving proximal right middle and lower lobe pulmonary arteries. No signs of right ventricular strain. 2. Subsegmental atelectasis in the lung bases left greater than right. 3. Borderline size mediastinal lymph nodes. Electronically Signed: Maninder Pardo MD at 23:41 EDT , Venous Duplex 01/14/22 22:48 IMPRESSION: Extensive DVT. Electronically Signed: Miguel Del Toro MD at 23:28 EDT , ADDENDUM: 01/14/22 [id number] IMPRESSION: Extensive DVT. N.B. : Louise Yin/RONY murray OT, confirmed on 01/14/2022 23:30:02 (ET) that the healthcare facility has received the radiology report. Electronically Signed: Miguel Del Toro MD at 23:28 EDT , EKG Initial EKG: Interpretation: Sinus Tachycardia (Ventricular rate is 119. There is no acute ischemic changes. [place] interval is normal. Cures duration is normal.) Treatment and Re-Evaluation Narrative: With positive DVT the entire left lower extremity concern that patient's pleuritic pain is a PE. We will need to discuss CODE STATUS. Discharge Plan Dx/Rx/DC Orders Clinical Impression: Pulmonary embolus, Uterine cancer, Deep vein thrombosis (DVT) of femoral vein of left lower extremity, Acute deep vein thrombosis (DVT) of popliteal vein of lower extremity, Hypercalcemia Disposition Disposition: Acute Care [facility]
[2022-01-14 23:00] VITALS: RESP 15
--- NOTE | 2022-01-14 23:37 | HP.PCM.HOS_ITS ---
HPI - General General Date of Admission: 01/14/22 Date of Service: 01/14/22 Chief Complaint: Chest pain HPI Narrative BLUE LARA, is a 61 F with a history of stage IV uterine cancer who is planning on going for 'integrated medicine' in [place] presents to the emergency department with chest pain. Her symptoms began a day before prese ntation. Initially the chest pain was located under her left breast. This chest pain went away but later on it appeared at her substernal chest area. The chest pain worsens with movement and taking a deep breath. She described her chest pain as sharp. Associated with symptoms is pain and swelling of her left calf and her left thigh. Also her left lower extremity is tender to touch. Associated with symptom is shortness of breath. Reportedly her father had a clotting disorder. [facility] Medical History Anxiety Back pain Bladder prolapse Endometriosis History of echocardiogram History of irregular heartbeat History of ulceration Migraine headache Non-smoker Uterine cancer Uterine fibroid Wears glasses White coat syndrome with high blood pressure but without hypertension Home Medications multivitamin 1 tab PO DAILY 08/01/21 [History Last Taken Unknown] omega 1-rvn-hfw-fish oil 60 mg-90 mg-500 mg capsule (Fish Oil) 1 cap PO DAILY 08/01/21 [History Last Taken Unknown] vitamin E (dl, acetate) 45 mg (100 unit) capsule 45 mg PO DAILY 08/01/21 [History Last Taken Unknown] ascorbic acid (vitamin C) 1,000 mg capsule,extended release 2 cap PO DAILY 08/16/21 [History Last Taken Unknown] cholecalciferol (vitamin D3) 125 mcg (5,000 unit) tablet (Vitamin D3) 250 mcg PO DAILY 08/16/21 [History Last Taken Unknown] zinc 50 mg tablet 100 mg PO DAILY 08/16/21 [History Last Taken Unknown] diltiazem HCl 180 mg capsule,extended release 24 hr 180 cap PO BID 01/14/22 [History Last Taken Unknown] melatonin 3 mg tablet 3 mg PO DAILY 01/14/22 [History Last Taken Unknown] morphine 10 mg/5 mL oral solution 7.5 ml PO Q4H PRN PRN Pain 01/14/22 [History Last Taken Unknown] Allergy/AdvReac Type Severity Reaction Status Date / Time aspirin Allergy Other Verified 01/14/22 20:59 Family History Father Prostate cancer Diabetes Myocardial infarction Mother Myocardial infarction Surgical History History of laparoscopy Hx of laparoscopy Uterine fibroid Social History Smoking Status: Never smoker alcohol intake: never substance use type: does not use caffeine: Yes seatbelt use: always do you feel safe at home: Yes additional social history: [employer] Patient does not work ROS ROS Narrative Pertinent positives and pertinent negatives as noted in HPI. All other systems were reviewed and are negative. Vital Signs Vital Signs Vital Signs: 01/14/22 21:01 01/14/22 22:30 01/14/22 22:30 Temperature 98.2 F Temperature Source Temporal Pulse Rate 125 H Respiratory Rate 18 Respiratory Effort Normal Non-Labored Respiratory Pattern Normal Blood Pressure 132/88 H Blood Pressure Mean 102 Pulse Ox 95 Oxygen Delivery Method Room Air Room Air 01/14/22 22:38 01/14/22 23:00 Temperature Temperature Source Pulse Rate 106 H Respiratory Rate 22 H 15 Respiratory Effort Respiratory Pattern Blood Pressure 136/83 H Blood Pressure Mean 100 Pulse Ox 98 Oxygen Delivery Method Room Air Room Air Weight Weight: 55.338 kg Body Mass Index (BMI) 20.9 Physical Exam Narrative Physical exam: General: Well-nourished, well-developed. Head: Normocephalic, atraumatic, no tenderness Eyes: Vision is grossly intact. EOMI ENT, no trauma, moist mucous membranes, no rhinorrhea Neck: Nontender, full range of motion CVS: Regular rate and rhythm. S1-S2 present. No murmur, gallop or rub. Respiratory : clear to auscultation bilaterally, chest wall nontender, no wheezing Abdomen: Soft, nontender, nondistended, normal bowel sounds, no masses : Deferred Back: Nontender, no CVA tenderness Extremities: Swelling and tightness of left calf. Right calf is not swollen. Skin: Normal color, no trauma, abrasions Neuro: Alert, oriented, cranial nerves II through XII grossly intact. Psychiatry: Normal mood. Normal affect. Not depressed. Not anxious. Results Lab / Micro Data Result Diagrams: 01/14/22 21:30 01/14/22 21:30 Labs: Laboratory Results - last 24 hr 01/14/22 21:30: WBC 10.8, RBC 2.89 L, Hgb 9.9 L, Hct 30.1 L, MCV 104.2 H, MCH 34.3 H, MCHC 32.9, RDW Std Deviation 51.5 H, RDW Coeff of Subha 13.3, Plt Count 281, MPV 8.6, Immature Gran % (Auto) 0.500, Neut % (Auto) 81.7 H, Lymph % (Auto) 5.9 L, [place] % (Auto) 11.2 H, Eos % (Auto) 0.3, Baso % (Auto) 0.4, Absolute Neuts (auto) 8.8 H, Absolute Lymphs (auto) 0.64 L, Nucleated RBC % 0 01/14/22 21:30: Sodium 132 L, Potassium 4.3, Chloride 94 L, Carbon Dioxide 26.0, Anion Gap 12, BUN 17, Creatinine 0.62, Estim Creat Clear Calc 83.32, Est GFR (MDRD) Af Amer 127, Est GFR (MDRD) Non-Af 105, BUN/Creatinine Ratio 27.6 H, Glucose 103, Calcium 13.0 H*, Troponin I High Sens < 3 L Radiology Impression Venous Duplex 01/14/22 22:48 IMPRESSION: Extensive DVT. Electronically Signed: Miguel Del Toro MD at 23:28 EDT Reading Location ID and State: [employer] / [place] Tel , Service support , ADDENDUM: 01/14/22 [id number] IMPRESSION: Extensive DVT. N.B. : Louise Yin/ED nursing unit clerk, OT, confirmed on 01/14/2022 23:30:02 (ET) that the healthcare facility has received the radiology report. Electronically Signed: Miguel Del Toro MD at 23:28 EDT , Assessment & Plan Assessment/Plan (1) Pulmonary embolus: PLAN: CTA chest PE protocol was visualized and independently interpreted and I agree with Interpretation of pulmonary emboli involving proximal right middle and lower lobe pulmonary arteries. Started on heparin drip at emergency department and continued. Will check echocardiogram. (2) DVT, femoral, acute: PLAN: Venous duplex of left lower extremity positive for DVT from common femoral vein to the peroneal vein/posterior tibial vein at the level of the calf. Heparin drip as above. (3) Hypercalcemia: PLAN: BMP showed calcium of 13. Likely from malignancy. IV fluids ordered. Vitamin D level and intact parathyroid hormone ordered. Trend BMP. (4) Lactic acidosis: PLAN: Likely from tissue hypoxia secondary to PE/DVT. Trend lactic acid. (5) Uterine cancer: PLAN: Home morphine continued. Monitor. Charges/Coding Visit Charges Inpatient E&M: 79984 Init Hosp L3
[2022-01-14] MEDS: HYDROmorphone 0.5 MG/0.5 ML SYRINGE IV (23:40)
[2022-01-14 23:46] VITALS: BP 128/83; PULSE 113; RESP 18; O2SAT 95
[2022-01-14 23:48] VITALS: RESP 17
[2022-01-15] VITALS (12 sets, daily range): BP systolic 103–129; BP diastolic 69–81; PULSE 99–112; RESP 15–20; TEMP 36.3–37.7; O2SAT 93–98; BMI 22.4
[2022-01-15 00:20] LABS: Lactic Acid 2.5 mmol/L (0.4-1.9)
[2022-01-15] MEDS: HYDROmorphone 0.5 MG/0.5 ML SYRINGE IV (00:20)
[2022-01-15] MEDS: HEPARIN/D5w 25,000 UNITS 25,000 UNITS/250 ML IV.SOLN. 8 UNITS CONT INF (00:48)
[2022-01-15] MEDS: Heparin Injection (Vial) 5,000 UNIT/ML VIAL 4000 UNIT IV (00:48)
--- NOTE | 2022-01-15 00:50 | NURSING ---
dr martins does not want me to wait for pt and ptt results to come back. He wants the heparin drip started now.
[2022-01-15 01:09] LABS: International Normalized Ratio 1.3; Prothrombin Time (Protime)PT. 15.8 SECONDS (11.7-14.9)
[2022-01-15 01:11] LABS: Partial Thromboplast Time 32.8 Seconds (24.1-36.2)
[2022-01-15] MEDS: 0.9% Normal Saline 1,000 ML 100 ML IV ×3 (03:43→21:11)
[2022-01-15 03:49] LABS: Reflex Lactate? Y
[2022-01-15] MEDS: morphine (oral solution) 10MG/0.5ML Syringe 15 MG PO ×4 (03:50→21:07)
[2022-01-15 04:28] LABS: Absolute Lymphocyte Count 0.71 X10^3/uL (0.83-4.51); Basophil# 0.03 X10^3/uL; Basophil% 0.3 % (0-1); Eosinophil# 0.01 X10^3/uL; Eosinophils% 0.1 % (0-5); Hematocrit 27.1 % (37-47); Lymphocyte # 0.71 X10^3/ul (0.83-4.51); Lymphocyte % 7.3 % (19-41); Mean Corp Hgb Conc 33.2 g/dL (32-36); Mean Corpuscular Hgb 34.1 pg (27.0-32.0); Mean Corpuscular Volume 102.7 fL (81-99); Mean Platelet Vol. 8.6 fl (6.2-12.0); Monocyte# 1.02 X10^3/uL; Monocyte% 10.5 % (0-10); NRBC Flagged by Analyzer 0 % (0-5); Neutrophil # 7.95 X10^3/uL (2.7-7.7); Neutrophil % 81.4 % (47-70); Platelet Count 253 K/mm3 (150-450); RBC Distribution Width CV 13.3 % (11.6-14.6); RBC Distribution Width SD 49.8 fl (35.1-43.9); Red Blood Count 2.64 M/mm3 (4.2-5.4); White Blood Count 9.8 K/mm3 (4.4-11.0)
[2022-01-15 04:48] LABS: Anion Gap 11 (5-15); BUN 16 mg/dL (7-18); BUN/Creat Ratio 32.8 RATIO (10-20); Calcium,Total 12.2 mg/dL (8.5-10.1); Chloride 96 mmol/L (98-107); Creatinine, Serum 0.49 mg/dL (0.55-1.02); EST Glomerular Filtration Rate 137 mL/min (>60); Est Glom Filt Rate - Afr Amer 166 mL/min (>60); Estimated Creatinine Clearance 105.43 ml/min; Glucose 88 mg/dL (74-106); Potassium 3.9 mmol/L (3.5-5.1); Sodium Level 131 mmol/L (136-145)
[2022-01-15 04:52] LABS: Lactic Acid 1.9 mmol/L (0.4-1.9)
[2022-01-15 04:58] LABS: BNP,B-Type NATRIURETIC PEPTIDE 55.5 pg/mL (0-100)
[2022-01-15 08:53] LABS: Partial Thromboplast Time 50.2 Seconds (24.1-36.2)
[2022-01-15] MEDS: 0.9% Saline Lock 10 ML Syringe IV (09:09)
[2022-01-15] MEDS: Heparin Injection (Vial) 5,000 UNIT/ML VIAL IV ×2 (09:09→16:07)
[2022-01-15] MEDS: Multivitamins,Therapeutic Tablet 1 TABLET PO (09:31)
[2022-01-15] MEDS: dilTIAZem CD 180 MG Capsule PO ×2 (09:31→21:09)
[2022-01-15 09:38] LABS: PTHIN < 6.3 pg/mL (18.4-80.1)
[2022-01-15 11:21] LABS: Vitamin D,25 Hydroxy > 150.0 ng/mL (29.95-100.01)
--- NOTE | 2022-01-15 11:30 | CASEMGMT ---
RN CM [employer] TECHNICIAN CM to room to meet with patient for initial transition planning/care coordination assessment. ADRIAN YOUNGER introduced self and role at [facility]. Pt voices understanding and consents to assessment at this time. Pt resting in bed in no distress at this time. and 16-yr-old dtr @ bedside. Pt is A/O at this time and answers all questions appropriately. Care providers, pharmacy, and demographics verified/updated at this time. PCP: Dr Vargas Specialists: Dr Bob @ [facility] in [place]. Pt states is planning to go to [place] February 04 to an alternative treatment center. Preferred Pharmacy: [facility] Retail Insurance: [employer] Prescription Benefit: None Living Will/HPOA: Pt and state pt has HPOA, who is her . They think pt also has a LW, but they are not sure. LNOK: , Robin. Living Arrangements: Lives w/ and 16-yr-old dtr in 2-story home. FFSU. 4 steps to enter. Independent w/ADL's. Has been becoming more weak for past several weeks. does grocery shopping and most home mgmt tasks. Jew has been bringing meals 2 x's/week. Pt states she has a wonderful support system. Transportation: DME: Denies using any DME @ home. States has been using [facility] while @ [facility] d/t leg pain. HHC/SNF: No hx of either. Pt wishes to return home w/spousal support. CM to follow for any further discharge planning/needs. Advised pt and to ask for CM if any further questions/concerns/needs arise. Voices understanding. PLAN: Home. No Rx coverage. CM to follow for anti-coag @ d/c. Olesya SEON ADRIAN YOUNGER
--- NOTE | 2022-01-15 12:22 | PCM.PN.HOSP ---
Subjective Subjective Has left-sided chest pain only with deep breaths under her breast. She also has left leg pain consistent with her DVT however she does have pulses intact that are palpable Objective Data Objective Data Vital Signs: Vital Signs Temp Pulse Resp BP Pulse Ox O2 Del Method 97.4 F L 106 H 18 107/72 97 Room Air 01/15/22 09:22 01/15/22 09:22 01/15/22 09:22 01/15/22 09:22 01/15/22 09:22 01/15/22 09:22 Oxygen Delivery Method Room Air Weight: 130 lb 11.746 oz Body Mass Index (BMI) 22.4 Intake & Output: Intake and Output for Last 24 Hours 01/14/22 01/15/22 01/16/22 03:59 03:59 03:59 Intake Total 546.8 / 546.8 Output Total 0 / 0 Balance 546.8 / 546.8 Lab / Micro Data Result Diagrams: 01/15/22 04:20 01/15/22 04:20 Labs: Laboratory Results - last 24 hr 01/14/22 21:30: WBC 10.8, RBC 2.89 L, Hgb 9.9 L, Hct 30.1 L, MCV 104.2 H, MCH 34.3 H, MCHC 32.9, RDW Std Deviation 51.5 H, RDW Coeff of Subha 13.3, Plt Count 281, MPV 8.6, Immature Gran % (Auto) 0.500, Neut % (Auto) 81.7 H, Lymph % (Auto) 5.9 L, Ritchie % (Auto) 11.2 H, Eos % (Auto) 0.3, Baso % (Auto) 0.4, Absolute Neuts (auto) 8.8 H, Absolute Lymphs (auto) 0.64 L, Nucleated RBC % 0 01/14/22 21:30: Sodium 132 L, Potassium 4.3, Chloride 94 L, Carbon Dioxide 26.0, Anion Gap 12, BUN 17, Creatinine 0.62, Estim Creat Clear Calc 83.32, Est GFR (MDRD) Af Amer 127, Est GFR (MDRD) Non-Af 105, BUN/Creatinine Ratio 27.6 H, Glucose 103, Calcium 13.0 H*, Troponin I High Sens < 3 L 01/14/22 23:30: PT Cancelled, INR Cancelled, APTT Cancelled 01/14/22 23:30: Lactic Acid 2.5 H* 01/15/22 00:45: PT 15.8 H, INR 1.3, APTT 32.8 01/15/22 04:20: WBC 9.8, RBC 2.64 L, Hgb 9.0 L, Hct 27.1 L, MCV 102.7 H, MCH 34.1 H, MCHC 33.2, RDW Std Deviation 49.8 H, RDW Coeff of Subha 13.3, Plt Count 253, MPV 8.6, Immature Gran % (Auto) 0.400, Neut % (Auto) 81.4 H, Lymph % (Auto) 7.3 L, Ritchie % (Auto) 10.5 H, Eos % (Auto) 0.1, Baso % (Auto) 0.3, Absolute Neuts (auto) 8.0 H, Absolute Lymphs (auto) 0.71 L, Nucleated RBC % 0 01/15/22 04:20: Sodium 131 L, Potassium 3.9, Chloride 96 L, Carbon Dioxide 24.0, Anion Gap 11, BUN 16, Creatinine 0.49 L, Estim Creat Clear Calc 105.43, Est GFR (MDRD) Af Amer 166, Est GFR (MDRD) Non-Af 137, BUN/Creatinine Ratio 32.8 H, Glucose 88, Calcium 12.2 H 01/15/22 04:20: B-Natriuretic Peptide 55.5, PTH Intact Cancelled 01/15/22 04:20: Vitamin D 25-Hydroxy > 150.0 H 01/15/22 04:20: Lactic Acid 1.9 01/15/22 04:20: PTH Intact < 6.3 L 01/15/22 07:09: APTT 50.2 H Radiography Diagnostic Testing: Radiology Impression Chest CTA 01/14/22 22:43 IMPRESSION: 1. Pulmonary emboli involving proximal right middle and lower lobe pulmonary arteries. No signs of right ventricular strain. 2. Subsegmental atelectasis in the lung bases left greater than right. 3. Borderline size mediastinal lymph nodes. Electronically Signed: Maninder Pardo MD at 23:41 EDT , ADDENDUM: 01/14/22 2354 IMPRESSION: 1. Pulmonary emboli involving proximal right middle and lower lobe pulmonary arteries. No signs of right ventricular strain. 2. Subsegmental atelectasis in the lung bases left greater than right. 3. Borderline size mediastinal lymph nodes. N.B. : The above Results were Read Back by Maninder Pardo MD to Dr. Clive MD, and understanding confirmed on 01/14/2022 23:47:20 (ET). Electronically Signed: Maninder Pardo MD at 23:41 EDT , Venous Duplex 01/14/22 22:48 IMPRESSION: Extensive DVT. Electronically Signed: Miguel Del Toro MD at 23:28 EDT , ADDENDUM: 01/14/22 2336 IMPRESSION: Extensive DVT. N.B. : Louise Yin/RONY murray OT, confirmed on 01/14/2022 23:30:02 (ET) that the healthcare facility has received the radiology report. Electronically Signed: Miguel Del Toro MD at 23:28 EDT , Physical Exam Const alert, oriented x3 and no apparent distress Constitutional Narrative: Thin General Appearance: cooperative HEENT normocephalic and moist oral mucous membranes Eyes PERRL, EOMs intact bilaterally and conjunctivae normal Neck supple and no JVD Resp normal respiratory effort, no retractions, no use of accessory muscles and clear to auscultation bilaterally Auscultation: Negative for crackles, rales, rhonchi or wheezes Cardio regular rhythm, S1 normal heart sound, S2 normal heart sound and no murmurs Rate: tachycardic GI soft to palpation, non-tender and non-distended; Negative for hepatosplenomegaly Extremity Extremity Narrative: Left leg is more swollen than the right, bilateral pulses are intact. Skin no rashes or lesions noted Neuro no focal motor deficits and no sensory deficits noted Psych affect normal Appearance: appropriate Assessment & Plan Assessment/Plan (1) Pulmonary embolus: (2) DVT, femoral, acute: (3) Hypercalcemia: (4) Lactic acidosis: (5) Uterine cancer: PLAN: Plan 1. Metastatic uterine cancer with PEs and left DVT ? Currently on a heparin drip, discussed with her possibly transitioning to Eliquis versus Lovenox and I did discuss with her that Lovenox is the best option however she is not enthusiastic about twice daily injections so when she does go home she would like to be on Eliquis ? She is chronically tachycardic it looks like when she is on Cardizem for this so will monitor her heart rate but at this time she is not short of breath or hypoxic ? She states that her oncologist told her that there is nothing left for her to do for her cancer so she and her will be going to [facility] to meet with an integrative medicine specialist ? Did have a 25-minute conversation on advance care planning ? Continue with her home pain medications and will make adjustments as necessary Charges/Coding Visit Charges Inpatient E&M: 20166 Subs Hosp L2
[2022-01-15] MEDS: DiphenhydrAMINE 50 MG/ML Syringe 25 MG IV (12:38)
[2022-01-15 15:57] LABS: Partial Thromboplast Time 44.1 Seconds (24.1-36.2)
[2022-01-15 22:53] LABS: Partial Thromboplast Time 62.3 Seconds (24.1-36.2)
[2022-01-16] VITALS (7 sets, daily range): BP systolic 107–120; BP diastolic 61–75; PULSE 96–119; RESP 18–20; TEMP 36.9–37.3; O2SAT 91–95
[2022-01-16] MEDS: HEPARIN/D5w 25,000 UNITS 25,000 UNITS/250 ML IV.SOLN. 10 UNITS CONT INF (01:22)
[2022-01-16] MEDS: morphine (oral solution) 10MG/0.5ML Syringe 15 MG PO ×3 (03:14→14:39)
[2022-01-16 03:47] LABS: Absolute Lymphocyte Count 0.74 X10^3/uL (0.83-4.51); Absolute Neutrophil Count 7.2 X10^3/uL (2.0-7.7); Basophil# 0.03 X10^3/uL; Basophil% 0.3 % (0-1); Eosinophil# 0.04 X10^3/uL; Eosinophils% 0.4 % (0-5); Hematocrit 25.4 % (37-47); Hemoglobin 8.2 g/dL (12.0-15.0); Lymphocyte # 0.74 X10^3/ul (0.83-4.51); Mean Corp Hgb Conc 32.3 g/dL (32-36); Mean Corpuscular Hgb 34.2 pg (27.0-32.0); Mean Corpuscular Volume 105.8 fL (81-99); Mean Platelet Vol. 8.4 fl (6.2-12.0); Monocyte# 1.19 X10^3/uL; Monocyte% 12.8 % (0-10); NRBC Flagged by Analyzer 0 % (0-5); Neutrophil # 7.21 X10^3/uL (2.7-7.7); Neutrophil % 77.9 % (47-70); Platelet Count 279 K/mm3 (150-450); RBC Distribution Width CV 13.5 % (11.6-14.6); RBC Distribution Width SD 52.1 fl (35.1-43.9); White Blood Count 9.3 K/mm3 (4.4-11.0)
[2022-01-16 04:00] LABS: Partial Thromboplast Time 48.5 Seconds (24.1-36.2)
[2022-01-16] MEDS: Heparin Injection (Vial) 5,000 UNIT/ML VIAL IV ×2 (04:41→11:31)
[2022-01-16] MEDS: 0.9% Saline Lock 10 ML Syringe IV (04:43)
[2022-01-16] MEDS: 0.9% Normal Saline 1,000 ML 100 ML IV (04:49)
[2022-01-16] MEDS: DiphenhydrAMINE 25 MG Capsule PO (06:45)
[2022-01-16] MEDS: dilTIAZem CD 180 MG Capsule PO (09:34)
[2022-01-16] MEDS: Multivitamins,Therapeutic Tablet 1 TABLET PO (09:34)
[2022-01-16 11:24] LABS: Partial Thromboplast Time 54.3 Seconds (24.1-36.2)
--- NOTE | 2022-01-16 11:36 | CASEMGMT ---
Pt to be sent home on Eliquis and med e-scribed to [facility] retail pharmacy and eliquis 30 day free trial card applied as pt has [facility] Health insurance and no Rx coverage. Dr. Murphy aware and pt provided with [facility]cription [facility] info. Perlita CAMPBELL CM
[2022-01-16] MEDS: DiphenhydrAMINE 50 MG/ML Syringe 25 MG IV (13:13)
[2022-01-16 13:46] LABS: Hematocrit 24.3 % (37-47)
[2022-01-16] MEDS: APIXABAN 5 MG TABLET 10 MG PO (14:40)
[2022-01-16 16:49] LABS: Ferritin 873 ng/mL (8-252); Iron 38 ug/dL (50-170); Iron Binding Capacity,Total 198 ug/dL (250-450); PERCENT IRON SATURATION 19.2 % (15.0-55.0)
--- NOTE | 2022-01-16 16:52 | DCINST_ITS ---
Discharge Instructions Diet Discharge Diet: No restrictions Activity Discharge Activity: Return to Normal Activity Dressing / Incision Call your doctor if you observe: Fever of 101 or Higher, Shortness of breath, Dizziness, Fainting spells, Swelling in the ankles, Chest pain and Increased palpitations (irregular heartbeat) Follow Up Care Test Results: Test results from this visit will be discussed in further detail at your follow- up appointment, if applicable. Discharge Plan Admission Admit Date/Time: 01/14/22 23:39 Attending Provider: Ascencion Murphy Primary Care Provider: Morgan Vargas Consulting Providers: [place] Instructions Additional Instructions / Restrictions: Follow-up with your PCP in 3 to 5 days to monitor hemoglobin as well as calcium level Discharge Orders/Prescriptions Prescriptions: New Eliquis 5 mg tablet 10 mg PO BID Qty: 90 0RF Rx Instructions: 2 tabs twice daily for 7 days then 1 tablet twice daily ferrous gluconate 324 mg (37.5 mg iron) tablet 324 mg PO DAILY Qty: 30 0RF Continued vitamin E (dl, acetate) 45 mg (100 unit) capsule 45 mg PO DAILY omega 7-hze-elg-fish oil [Fish Oil] 60-90-500 mg capsule 1 cap PO DAILY multivitamin Tablet 1 tab PO DAILY zinc 50 mg Tablet 100 mg PO DAILY ascorbic acid (vitamin C) 1,000 mg Capsule, Extended Release 2 cap PO DAILY diltiazem HCl 180 mg capsule,extended release 24hr 180 cap PO BID Label Comments: TAKE 1 CAPSULE BY MOUTH TWICE DAILY melatonin 3 mg Tablet 3 mg PO DAILY morphine 10 mg/5 mL solution 7.5 ml PO Q4H PRN PRN (Reason: Pain) Label Comments: TAKE 15MG (7.5ML) BY MOUTH EVERY FOUR HOURS NEEDED Discontinued cholecalciferol (vitamin D3) [Vitamin D3] 125 mcg (5,000 unit) Tablet 250 mcg PO DAILY Referrals / Follow Up: Morgan Vargas MD [Primary Care Provider] - Within 1 Week Disposition Disposition (needs filled in before D/C Order can be placed): Home, Self Care
--- NOTE | 2022-01-16 16:58 | DS.PCM_ITS ---
Providers Date of Admission: 01/14/22 Primary Care Physician: Dr. Morgan Vargas MD Reason For Visit: ACUTE DVT AND PE Diagnosis Discharge Diagnosis (1) Pulmonary embolus: Status: Acute Code(s): I26.99 - Other pulmonary embolism without acute cor pulmonale (2) DVT, femoral, acute: Status: Acute Code(s): I82.419 - Acute embolism and thrombosis of unspecified femoral vein (3) Hypercalcemia: Status: Acute Code(s): E83.52 - Hypercalcemia (4) Lactic acidosis: Status: Acute Code(s): E87.2 - Acidosis (5) Uterine cancer: Status: Acute Code(s): C55 - Malignant neoplasm of uterus, part unspecified Plan 1. Metastatic uterine cancer with PEs and left DVT ? Currently on a heparin drip, discussed with her possibly transitioning to Eliquis versus Lovenox and I did discuss with her that Lovenox is the best option however she is not enthusiastic about twice daily injections so when she does go home she would like to be on Eliquis ? She is chronically tachycardic it looks like when she is on Cardizem for this so will monitor her heart rate but at this time she is not short of breath or h ypoxic ? She states that her oncologist told her that there is nothing left for her to do for her cancer so she and her will be going to [facility] to meet with an integrative medicine specialist ? Did have a 25-minute conversation on advance care planning ? Continue with her home pain medications and will make adjustments as necessary Medications at Discharge Home Medications multivitamin 1 tab PO DAILY vitamin 08/01/21 omega 0-yqf-mib-fish oil 60 mg-90 mg-500 mg capsule (Fish Oil) 1 cap PO DAILY supplement 08/01/21 vitamin E (dl, acetate) 45 mg (100 unit) capsule 45 mg PO DAILY vitamin 08/01/21 ascorbic acid (vitamin C) 1,000 mg capsule,extended release 2 cap PO DAILY vitamin 08/16/21 zinc 50 mg tablet 100 mg PO DAILY supplement 08/16/21 diltiazem HCl 180 mg capsule,extended release 24 hr 180 cap PO BID heart 01/14/22 melatonin 3 mg tablet 3 mg PO DAILY sleep 01/14/22 morphine 10 mg/5 mL oral solution 7.5 ml PO Q4H PRN PRN Pain 01/14/22 apixaban 5 mg tablet (Eliquis) 10 mg PO BID #90 tabs 01/16/22 ferrous gluconate 324 mg (37.5 mg iron) tablet 324 mg PO DAILY #30 tabs 01/16/22 Hospital Course Operations None Procedures None Summary of Care Provided Minutes Spent on Discharge: 50 Hospital Course: Per HPI: BLUE LARA, is a 61 F with a history of stage IV uterine cancer who is planning on going for 'integrated medicine' in [place] presents to the? emergency department with chest pain.? Her symptoms began a day before presentation.? Initially the chest pain was located under her left breast.? This chest pain went away but later on it appeared at her substernal chest area.? The chest pain worsens with movement and taking a deep breath.? She described her chest pain as sharp.? Associated with symptoms is pain and swelling of her left calf and her left thigh.? Also her left lower extremity is tender to touch. Associated with symptom is shortness of breath. Reportedly her father had a clotting disorder. Hospital Course: 1.? Metastatic uterine cancer with PEs and left DVT ? Currently on a heparin drip, discussed with her possibly transitioning to Eliquis versus Lovenox and I did discuss with her that Lovenox is the best option however she is not enthusiastic about twice daily injections so when she does go home she would like to be on Eliquis ? She is chronically tachycardic it looks like when she is on Cardizem for this so will monitor her heart rate but at this time she is not short of breath or hypoxic ? She states that her oncologist told her that there is nothing left for her to do for her cancer so she and her will be going to [facility] to meet with an integrative medicine specialist ? Continue with her home pain medications and will make adjustments as necessary 2. Hypercalcemia secondary to vitamin D toxicity ? She has been taking a lot of vitamin D to make her more alkaline to help fight the cancer ? Her vitamin D level is over 150 therefore I did advise her to discontinue all vitamin D supplementation 3. Anemia of chronic disease ? Iron studies are low but ferritin is high with a normal iron saturation and a low total iron binding capacity ? Could benefit from iron supplementation ? Her hemoglobin on admission was around 9.9 and is now down to 8.0. I did have an extensive discussion with her and her about the possibility that this could be a GI bleed and that in order to evaluate that more thoroughly would need to have a stool specimen and and everything that this would entail. They decided that they wanted to go home today. I discussed with them that it would be better to stay to let us evaluate for possible GI bleed and give her some stool softeners especially since she has some distention today and has not had a bowel movement in several days however they state that they recognize the risks, I went over the warning signs of worsening anemia and they felt that they can go home if she were to develop any of these signs to come back to the ER. I did ask for follow-up with her PCP in 3 to 5 days to obtain outpatient blood work to monitor both her calcium as well as her anemia. Physical Exam Narrative Const alert, oriented x3 and no apparent distress Constitutional Narrative: Thin General Appearance: cooperative HEENT normocephalic and moist oral mucous membranes Eyes PERRL, EOMs intact bilaterally and conjunctivae normal Neck supple and no JVD Resp normal respiratory effort, no retractions, no use of accessory muscles and clear to auscultation bilaterally Auscultation: Negative for crackles, rales, rhonchi or wheezes Cardio regular rhythm, S1 normal heart sound, S2 normal heart sound and no murmurs Rate: tachycardic GI soft to palpation, non-tender and non-distended; Negative for hepatosplenomegaly Extremity Extremity Narrative: Left leg is more swollen than the right, bilateral pulses are intact. Skin no rashes or lesions noted Neuro no focal motor deficits and no sensory deficits noted Psych affect normal Appearance: appropriate Medical Records Data Medical Nutrition Assessment Dietitian: Malnutrition Criteria Met Start: 01/15/22 15:56 Freq: Status: Active Protocol: Document 01/15/22 15:58 AG (Rec: 01/15/22 15:58 AG [id number]) Nutrition Malnutrition Evidence of Malnutrition Exists Yes Malnutrition (severe): Chronic Evidenced By Suboptimal Energy Intake ( Severe),Weight Loss (Severe) Clinical Problem Chronic Disease or Condition Related Malnutrition Etiology severe, chronic malnutrition related to inadequate energy intake w/ increased energy needs d/t stage IV cancer Signs/Symptoms as evidenced by estimated PO intake meeting <75% of estimated energy needs >3 months, unintentional wt loss of ~50#/27% x 4 months Status Active Problem Recommendation Dietitian Recommendations/Changes regular diet given malnutrition; pt does not want oral nutrition supplements at this time- will offer as pt if agreeable. Weight / BMI Weight Weight: 130 lb 11.746 oz Body Mass Index (BMI) 22.4 ABG / Lab / Microbiology Data Result Diagrams: 01/16/22 13:15 01/15/22 04:20 Laboratory: Laboratory Results - last 24 hr 01/15/22 21:15: APTT 62.3 H 01/16/22 03:40: WBC 9.3, RBC 2.40 L, Hgb 8.2 L, Hct 25.4 L, MCV 105.8 H, MCH 34.2 H, MCHC 32.3, RDW Std Deviation 52.1 H, RDW Coeff of Subha 13.5, Plt Count 279, MPV 8.4, Immature Gran % (Auto) 0.600, Neut % (Auto) 77.9 H, Lymph % (Auto) 8.0 L, [place] % (Auto) 12.8 H, Eos % (Auto) 0.4, Baso % (Auto) 0.3, Absolute Neuts (auto) 7.2, Absolute Lymphs (auto) 0.74 L, Nucleated RBC % 0 01/16/22 03:40: APTT 48.5 H 01/16/22 03:40: Iron 38 L, TIBC 198 L, Iron Saturation 19.2, Ferritin 873 H 01/16/22 10:43: APTT 54.3 H 01/16/22 13:15: Hgb 8.0 L, Hct 24.3 L D/C Instructions Discharge Diet: No restrictions Call your doctor if you observe: Fever of 101 or Higher, Shortness of breath, Dizziness, Fainting spells, Swelling in the ankles, Chest pain and Increased palpitations (irregular heartbeat) Meaningful Use Info Meaningful Use Diagnoses (Choose all that apply): None applicable Discharge Plan Admission Admit Date/Time: 01/14/22 23:39 Attending Provider: Ascencion Murphy Primary Care Provider: Morgan Vargas Consulting Providers: [place] Instructions Additional Instructions / Restrictions: Follow-up with your PCP in 3 to 5 days to monitor hemoglobin as well as calcium level Discharge Orders/Prescriptions Prescriptions: New Eliquis 5 mg tablet 10 mg PO BID Qty: 90 0RF Rx Instructions: 2 tabs twice daily for 7 days then 1 tablet twice daily ferrous gluconate 324 mg (37.5 mg iron) tablet 324 mg PO DAILY Qty: 30 0RF Continued vitamin E (dl, acetate) 45 mg (100 unit) capsule 45 mg PO DAILY omega 0-cbl-cfh-fish oil [Fish Oil] 60-90-500 mg capsule 1 cap PO DAILY multivitamin Tablet 1 tab PO DAILY zinc 50 mg Tablet 100 mg PO DAILY ascorbic acid (vitamin C) 1,000 mg Capsule, Extended Release 2 cap PO DAILY diltiazem HCl 180 mg capsule,extended release 24hr 180 cap PO BID Label Comments: TAKE 1 CAPSULE BY MOUTH TWICE DAILY melatonin 3 mg Tablet 3 mg PO DAILY morphine 10 mg/5 mL solution 7.5 ml PO Q4H PRN PRN (Reason: Pain) Label Comments: TAKE 15MG (7.5ML) BY MOUTH EVERY FOUR HOURS NEEDED Discontinued cholecalciferol (vitamin D3) [Vitamin D3] 125 mcg (5,000 unit) Tablet 250 mcg PO DAILY Referrals / Follow Up: Morgan Vargas MD [Primary Care Provider] - Within 1 Week Disposition Disposition (needs filled in before D/C Order can be placed): Home, Self Care Charges/Coding Visit Charges Inpatient E&M: 98495 Disch Hosp
--- NOTE | 2022-01-16 17:02 | CASEMGMT ---
Pt now to be discharged. Call to [facility] retail pharmacy to notify to deliver pt meds for discharge. Perlita CAMPBELL CM
== END 2022-01-16 18:11 | disposition home or self-care (01) | DRG 175 ==
LOC: ED 01-15 00:11 → PCU 01-15 01:13
PROVIDERS: Admitting Provider Hospitalist; Emergency Provider Emergency Medicine; PCP Family Medicine; Visit Provider Family Medicine
DX: I26.99 Other pulmonary embolism without acute cor pulmonale (principal); E43 Unspecified severe protein-calorie malnutrition; C79.9 Secondary malignant neoplasm of unspecified site; E87.2 Acidosis; I82.412 Acute embolism and thrombosis of left femoral vein; I82.432 Acute embolism and thrombosis of left popliteal vein; I82.452 Acute embolism and thrombosis of left peroneal vein; C55 Malignant neoplasm of uterus, part unspecified; D63.0 Anemia in neoplastic disease; E83.52 Hypercalcemia; T45.2X5A Adverse effect of vitamins, initial encounter; R00.0 Tachycardia, unspecified; Z68.22 Body mass index [BMI] 22.0-22.9, adult; Z79.899 Other long term (current) drug therapy; Z83.2 Family history of diseases of the blood and blood-forming organs and certain disorders involving the immune mechanism
CPT/HCPCS: 36415; 71275; 80048; 82306; 82728; 83540; 83550; 83605; 83880; 83970; 84484; 85014; 85018; 85025; 85610; 85730; 93005; 93971; 97802; 99285; J7030; Q9967; A4216